=== PATIENT | male | born 1995 | race Caucasian/White ===

== ENCOUNTER 2017-01-31 11:49 | Emergency (ER) | payer OTHER, BC ==
[~2017-01-31] VITALS: Ht 172.7 cm; Wt 73.0 kg
[2017-01-31 11:50] VITALS: BP 153/75; PULSE 115; RESP 20; TEMP 98.7; O2SAT 100
[2017-01-31] MEDS ORDERED: IBUPROFEN 400 MG TAB PO ONE (12:00)
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
[2017-01-31] MEDS ORDERED: IBUP-232 PO (13:04)
[2017-01-31 13:22] VITALS: BP 130/82
== END 2017-01-31 13:23 | disposition home or self-care (01) ==
LOC: NEPE 11:49
DX: M54.5 Low back pain (principal); V48.0XXA Car driver injured in noncollision transport accident in nontraffic accident, initial encounter; Y99.8 Other external cause status
CPT/HCPCS: 72100; 99284